=== PATIENT | female | born 1970 | race Caucasian/White ===

== ENCOUNTER 2017-05-14 18:35 | Emergency (ER) | payer OTHER ==
[2017-05-14 18:43] VITALS: BP 159/92
--- NOTE | 2017-05-14 18:51 | UC ---
Minor Trauma HPI - HPI Summary HPI Summary: 47 year old female presents with complains of right elbow laceration (2.5-5 cm) - History of Current Complaint Chief Complaint: UCSkin Stated Complaint: FELL-ELBOW,BACK,SHOULDER INJURIES Time Seen by Provider: 05/14/17 18:45 Hx Last Menstrual Period: 05/11/17 - Allergies/Home Medications Allergies/Adverse Reactions: Allergies Allergy/AdvReac Type Severity Reaction Status Date / Time Adhesive Tape Allergy Rash Verified 05/14/17 18:43 Cephalexin [From Keflex] Allergy Hives Verified 05/14/17 18:43 Sulfa Drugs Allergy Hives Verified 05/14/17 18:43 bees Allergy Anaphylatic Uncoded 05/14/17 18:43 Shock PMH/Surg Hx/FS Hx/Imm Hx Previously Healthy: Yes - Surgical History Surgical History: Yes Surgery Procedure, Year, and Place: [place] 2010. tubal ligation. R wrist surgery 1997 - Social History Alcohol Use: Rare Substance Use Type: None Smoking Status (MU): Former Smoker When Did the Patient Quit Smoking/Using Tobacco: 1999 Review of Systems Constitutional: Negative Skin: Other - right elbow laceration Eyes: Negative ENT: Negative Respiratory: Negative Cardiovascular: Negative Gastrointestinal: Negative Genitourinary: Negative Motor: Negative Neurovascular: Negative Musculoskeletal: Negative Neurological: Negative Psychological: Negative All Other Systems Reviewed And Are Negative: Yes Physical Exam Triage Information Reviewed: Yes Vital Signs: Initial Vital Signs Temp 36.7 C 05/14/17 18:37 Pulse 89 05/14/17 18:37 Resp 20 05/14/17 18:37 BP 159/92 05/14/17 18:37 Pulse Ox 100 05/14/17 18:37 Eye Exam: Normal ENT Exam: Normal Dental Exam: Normal Neck exam: Normal Neck: Positive: 1 Respiratory Exam: Normal Cardiovascular Exam: Normal Abdominal Exam: Normal Musculoskeletal Exam: Normal Neurological Exam: Normal Psychological Exam: Normal Skin: Positive: Other - right elboiw laceration Procedures - Laceration/Wound Repair 1 Location: upper extremity - right elbow 2.5 to 5 cm Description: Linear Anesthesia: Local, 1.0%, Lido Betadine Prep?: Yes Laceration/Wound Explored: clean Closure: Single Layer Debridement: minimal Suture Type: Nylon - 4.0 Number of Sutures: 3 Layer Closure?: No Sterile Dressing Applied?: No Minor Trauma Course/Dx - Differential Dx/Diagnosis Provider Diagnoses: right elbow/shoulder contusion. right elbow laceration Discharge - Discharge Plan Condition: Stable Disposition: HOME Prescriptions: DOXYcycline CAP(*) [DOXYcycline 100MG CAP(*)] 100 mg PO BID #14 cap Meloxicam [Mobic] 7.5 mg PO BID #30 tab Mupirocin 2% OINT* [Bactroban 2 % Oint*] 1 applic TOPICAL BID #1 tube Patient Education Materials: Laceration (ED), Soft Tissue Foreign Body (ED), Elbow Sprain (ED), Shoulder Sprain (ED) Referrals: Darryl Simons MD [Primary Care Provider] -
[2017-05-14] MEDS ORDERED: Lidocaine/Epineph/Tetraca SOL* (LET solution) 4 ML BTL TOPICAL ONE (18:57)
[2017-05-14] MEDS ORDERED: Ibuprofen TAB* 200 MG PO ONE (19:22)
--- NOTE | 2017-05-14 19:22 | RAD ---
INDICATION: Laceration. Foreign body. COMPARISON: None TECHNIQUE: AP, lateral, and oblique views were obtained. FINDINGS: There is no acute fracture. The elbow articulates only. There is no joint effusion. There is a laceration on the dorsal surface of the upper extremity at the level of the distal humerus. IMPRESSION: LACERATION. NO FRACTURE OR DISLOCATION.
--- NOTE | 2017-05-14 19:24 | RAD ---
INDICATION: Right shoulder injury COMPARISON: None TECHNIQUE: Routine frontal, Y and axial views were obtained. FINDINGS: The bony structures, joint spaces, and soft tissues are normal for age. IMPRESSION: NEGATIVE EXAMINATION.
[2017-05-14] MEDS ORDERED: Lidocaine 1% MPF* 2 ML VIAL INJ ONE (19:50)
[2017-05-14] MEDS ORDERED: Tetan/Diph/Pertus SYR(Tdap)* 0.5 ML SYR(BOOSTRIX) use SYR IM ONE (20:28)
== END 2017-05-14 20:35 | disposition home or self-care (01) ==
LOC: UCEAST 18:35
DX: S51.011A Laceration without foreign body of right elbow, initial encounter (principal); S50.01XA Contusion of right elbow, initial encounter; S40.011A Contusion of right shoulder, initial encounter; Z88.3 Allergy status to other anti-infective agents; Z91.030 Bee allergy status; Z88.2 Allergy status to sulfonamides; Z91.048 Other nonmedicinal substance allergy status; Z87.891 Personal history of nicotine dependence; W19.XXXA Unspecified fall, initial encounter
CPT/HCPCS: 12001; 90471; 90715; 99212; A9270-GY; G0463

== ENCOUNTER 2017-09-12 17:09 | Emergency (ER) | payer OTHER ==
[2017-09-12 18:50] LABS: Hematocrit 37 % (35-47); Hemoglobin 12.3 g/dl (12.0-16.0); Mean Corpuscular HGB Conc 33 g/dl (31-36); Mean Corpuscular Hemoglobin 29 pg (27-31); Mean Corpuscular Volume 88 fL (80-97); Mean Platelet Volume 8 um3 (7.4-10.4); Red Blood Count 4.19 10^6/ul (4.0-5.4); Red Cell Distribution Width 13 % (10.5-15); White Blood Count 9.1 10^3/ul (3.5-10.8)
[2017-09-12 19:01] LABS: ALT 15 U/L (7-52); AST 15 U/L (13-39); Alkaline Phosphatase 57 U/L (34-104); Anion Gap 8 mmol/L (2-11); BUN/Creatinine Ratio 19.4 (8-20); Blood Urea Nitrogen 14 mg/dL (6-24); C Reactive Protein 6.27 mg/L (< 5.00); CO2 Carbon Dioxide 25 mmol/L (22-32); Calcium 9.5 mg/dL (8.6-10.3); Chloride 101 mmol/L (101-111); EGFR African American 111.7 (>60); EGFR Non-African American 86.8 (>60); Globulin 3.4 g/dL (2-4); Glucose 85 mg/dL (70-100); Lipase 19 U/L (11.0-82.0); Potassium 3.6 mmol/L (3.5-5.0); Sodium 134 mmol/L (133-145); Total Protein 7.4 g/dL (6.4-8.9)
[2017-09-12 19:14] LABS: Urine Bacteria 1+ (Absent); Urine Bilirubin Negative (Negative); Urine Glucose Negative (Negative); Urine Nitrite Negative (Negative)
[2017-09-12] MEDS ORDERED: NS 0.9% 1000 ML* 1,000 ML IV ONE (21:10)
[2017-09-12] MEDS ORDERED: Morphine INJ* 4 MG/ML 1 ML CARPUJECT IV ONE ×2 (21:10→21:23)
[2017-09-12] MEDS ORDERED: Ondansetron INJ* 2 MG/ML VIAL IV ONE (21:10)
[2017-09-12] MEDS ORDERED: fentaNYL* 50 MCG/ML 2 ML VIAL (100 MCG VIAL) IV SLOW PU ONE (21:22)
[2017-09-12] MEDS ORDERED: Iohexol 300* (CONTRAST) 10 ML SDV IV ONE (21:28)
--- NOTE | 2017-09-12 21:38 | RAD ---
INDICATION: 47-year-old with right lower quadrant pain COMPARISON: CT November 10, 2013 TECHNIQUE: Axial source images were obtained from the hemidiaphragms to the symphysis pubis following administration of oral and intravenous contrast. 115 mL Omnipaque 300 was utilized. Coronal and sagittal reconstructed images were acquired. Lung bases: The lung bases are clear. Liver: The liver is normal in size. There are no masses. There is no ductal dilatation. Gallbladder: Cholecystectomy. Spleen: The spleen is normal in size. There are no masses. Pancreas: There is no focal pancreatic mass or ductal dilatation. Adrenal glands: There is no evidence of adrenal mass. Kidneys: The kidneys are normal in size and position. There are prompt nephrograms and there is prompt excretion bilaterally. There are no renal parenchymal masses. There is no evidence of nephrolithiasis. Adenopathy: There is no evidence of adenopathy by size criteria. Fluid collections: There are no free or localized fluid collections. Vessels:There are no significant atherosclerotic changes involving the aorta. There is no focal aneurysm. The iliac vessels are normal in caliber. The IVC appears normal. GI tract: There are no acute CT bowel findings. There is no obstruction. There is a small hiatal hernia. The stomach and small bowel appear normal. The lower GI tract is normal. The cecum, ileocecal valve, and terminal ileum appear normal. The appendix is visualized and appear normal. Pelvic organs: The uterus and right adnexa are normal. There is a 4.4 cm left adnexal cyst Bladder: There are no bladder masses. Abdominal and pelvic soft tissues: The extraperitoneal abdominal and pelvic soft tissues appear normal.. Osseous structures: There are no acute osseous findings. Other: None IMPRESSION: 1. Nonobstructive 4 mm lower pole left renal calculus, unchanged. 2. Small hiatal hernia. 3. 4.4 cm left adnexal cyst. 4. Normal appendix.
[2017-09-12] MEDS ORDERED: HYDROcodone/ACETAMIN 5-325 MG* 1 TAB PO ONE (21:53)
--- NOTE | 2017-09-12 21:59 | ED ---
Megan Contreras Nilda, scribed for Adrianna Downing MD on 09/12/17 at 1910 . Abdominal Pain/Female - HPI Summary HPI Summary: This patient is a 47 year old F presenting from [facility] to [facility] accompanied by friend with a chief complaint of constant severe sharp RLQ pain that radiates to back for the past 2 days. For a couple months, pt states she had mild intermittent abd pain that would resolve spontaneously. The patient rates the pain 7/10 in severity. Symptoms aggravated by movement and alleviated by rest. Pt states /para/abortus is 5/2/3 respectively. LNMP occurring now. - History of Current Complaint Chief Complaint: EDAbdPain Stated Complaint: RT SIDE ABD PAIN Time Seen by Provider: 09/12/17 18:36 Hx Obtained From: Patient Hx Last Menstrual Period: 05/11/17 Onset/Duration: Sudden Onset, Lasting Days, Still Present Timing: Constant Severity Currently: Severe Pain Intensity: 7 Pain Scale Used: 0-10 Numeric Location: Discrete At: RLQ Radiates: Yes Radiates to: Back Character: Sharp Aggravating Factor(s): Movement Alleviating Factor(s): Other: - rest Allergies/Adverse Reactions: Allergies Allergy/AdvReac Type Severity Reaction Status Date / Time Adhesive Tape Allergy Rash Verified 05/14/17 18:43 Cephalexin [From Keflex] Allergy Hives Verified 05/14/17 18:43 Sulfa Drugs Allergy Hives Verified 05/14/17 18:43 bees Allergy Anaphylatic Uncoded 05/14/17 18:43 Shock PMH/Surg Hx/FS Hx/Imm Hx Endocrine/Hematology History: Denies: Hx Diabetes, Hx Thyroid Disease Cardiovascular History: Denies: Hx Hypertension, Hx Pacemaker/ICD Respiratory History: Denies: Hx Asthma, Hx Chronic Obstructive Pulmonary Disease (COPD) GI History: Reports: Other GI Disorders - IBS Denies: Hx Ulcer History: Denies: Hx Renal Disease Sensory History: Denies: Hx Hearing Aid Psychiatric History: Denies: Hx Panic Disorder - Surgical History Surgery Procedure, Year, and Place: choley 2010. tubal ligation. R wrist surgery 1997 Infectious Disease History: No Infectious Disease History: Denies: Hx Clostridium Difficile, Hx Hepatitis, Hx Human Immunodeficiency Virus (HIV), Hx of Known/Suspected MRSA, Hx Shingles, Hx Tuberculosis, Hx Known/ Suspected VRE, Hx Known/Suspected VRSA, History Other Infectious Disease, Traveled Outside the [place] in Last 30 Days - Family History Known Family History: Positive: Diabetes - Social History Occupation: Employed Full-time Lives: With Family Alcohol Use: Rare Substance Use Type: Reports: None Smoking Status (MU): Former Smoker Review of Systems Positive: Abdominal Pain - RLQ Positive: Other - back pain All Other Systems Reviewed And Are Negative: Yes Physical Exam - Summary Physical Exam Summary: General: Well appearing, no pain distress Skin: Warm, Skin Color Reflects Adequate Perfusion, Dry Eyes: EOMI, MARK ENT: Pharynx normal, TMs normal Neck: Supple, nontender Respiratory: CTA, breath sounds present, no rhonchi, no wheezes, no rales Cardiovascular: RRR, no murmur, no rub, no gallop Abdomen: Soft, tender at RLQ, Non-distended, no guarding, no rebound Bowel: Present Musculoskeletal: MAR, No edema Neuro: Sensory/motor intact, A&Ox3, CN intact 2-12 Psych: Affect/mood appropriate Triage Information Reviewed: Yes Vital Signs On Initial Exam: Initial Vitals Temp Pulse Resp BP Pulse Ox 97.3 F 85 18 157/87 100 09/12/17 17:18 09/12/17 17:18 09/12/17 17:18 09/12/17 17:18 09/12/17 17:18 Vital Signs Reviewed: Yes - Rod Coma Scale Coma Scale Total: 15 Diagnostics - Vital Signs Vital Signs Temp Pulse Resp BP Pulse Ox 09/12/17 18:39 83 100 09/12/17 18:38 157/87 09/12/17 17:18 97.3 F 85 18 157/87 100 - Laboratory Lab Results: Lab Results 09/12/17 09/12/17 Range/Units 18:29 18:29 WBC 9.1 (3.5-10.8) 10^3/ul RBC 4.19 (4.0-5.4) 10^6/ul Hgb 12.3 (12.0-16.0) g/dl Hct 37 (35-47) % MCV 88 (80-97) fL MCH 29 (27-31) pg MCHC 33 (31-36) g/dl RDW 13 (10.5-15) % Plt Count 308 (150-450) 10^3/ul MPV 8 (7.4-10.4) um3 Neut % (Auto) 65.2 (38-83) % Lymph % (Auto) 23.1 L (25-47) % [place] % (Auto) 6.3 (1-9) % Eos % (Auto) 4.7 (0-6) % Baso % (Auto) 0.7 (0-2) % Absolute Neuts (auto) 5.9 (1.5-7.7) 10^3/ul Absolute Lymphs (auto) 2.1 (1.0-4.8) 10^3/ul Absolute Monos (auto) 0.6 (0-0.8) 10^3/ul Absolute Eos (auto) 0.4 (0-0.6) 10^3/ul Absolute Basos (auto) 0.1 (0-0.2) 10^3/ul Absolute Nucleated RBC 0 10^3/ul Nucleated RBC % 0 Lactic Acid 0.6 (0.5-2.0) mmol/L Result Diagrams: 09/12/17 18:29 09/12/17 18:29 Lab Statement: Any lab studies that have been ordered have been reviewed, and results considered in the medical decision making process. - CT Abd/Pel CT Interpretation Completed By: Radiologist - CT Abd/Pel, per radiologist, reveals: 1. Nonobstructive 4 mm lower pole left renal calculus, unchanged. 2. Small hiatal hernia. 3. 4.4 cm left adnexal cyst. 4. Normal appendix. ED physician has reviewed this radiology report and agrees. Re-Evaluation - Re-Evaluation First Eval Re-Evaluation Time: 21:44 Abdominal Pain Fem Course/Dx - Course Course Of Treatment: CT Abd/Pel, per radiologist, reveals: 1. Nonobstructive 4 mm lower pole left renal calculus, unchanged. 2. Small hiatal hernia. 3. 4.4 cm left adnexal cyst. 4. Normal appendix. ED physician has reviewed this radiology report and agrees. pt reavaluated and has a 3cm in circumference area of pain that is just inferior and to the right of the umbilicus, she is very tender in this spot even with mild touch without guarding or rebound. I question whether this is a small hernia although no defect was found on the CT. Pt does not have leukocytosis or a truly elevated crp and her ct was negative except for left adnexal cyst. there is no left adnexal tenderness. I have the pt following up in the am with surgery for a re-exam. - Diagnoses Provider Diagnoses: Abdominal pain, Hernia Discharge - Discharge Plan Condition: Stable Disposition: HOME Prescriptions: HYDROcodone/ACETAMIN 5-325 MG* [[place] 5-325 TAB*] 1 tab PO Q8H PRN #10 tab MDD 3 PRN Reason: Pain Referrals: Darryl Simons MD [Primary Care Provider] - 3 Days Additional Instructions: RETURN TO THE EMERGENCY DEPARTMENT FOR CHANGING OR WORSENING SYMPTOMS. The documentation as recorded by the Megan fragoso Nilda accurately reflects the service I personally performed and the decisions made by me, Adrianna Downing MD.
[2017-09-12 22:40] VITALS: BP 145/72
== END 2017-09-12 22:35 | disposition home or self-care (01) ==
LOC: ED 17:09
DX: K46.9 Unspecified abdominal hernia without obstruction or gangrene (principal); R10.31 Right lower quadrant pain; M54.9 Dorsalgia, unspecified; Z87.891 Personal history of nicotine dependence
CPT/HCPCS: 36415; 74177; 80053; 81003; 81015; 83605; 83690; 84702; 85025; 86140; 87086; 96374; 96375; 99284; J2405; Q9967

== ENCOUNTER 2019-07-31 07:46 | Emergency (ER) | payer OTHER ==
[2019-07-31 08:15] VITALS: BP 151/88
--- NOTE | 2019-07-31 08:38 | UC ---
Abdominal Pain Female HPI - HPI Summary HPI Summary: CHIEF COMPLAINT and HPI: This is a 49-year-old with a history of IBSwho complains of intense right lower quadrant pain. She is status post cholecystectomy in 2010 as well as a tubal ligation. The pain is described as primarily in the right lower quadrant, although it does radiate bilaterally and she has experienced this type of pain intermittently for the last 2 months. However, last night at 9:30 the pain became intense and did not resolve after a few minutes. When she woke up this morning the pain resumed. She did take CBDto help her sleep. When she ambulates, she must bend over. She feels as if she has to go to the bathroom all the time, but nothing comes out. The pain is described as severe and worse with walking She has decreased appetite, although she did eat some solid food last night. Dr. Lozoya is her doctor. Description of Pain:Sharp and boring as well as cramping. Right lower quadrant radiatingacross the lower abdomen. Patient denies urinary tract symptoms. VITAL SIGNS & SaO2 REVIEWED. Within normal limits unless noted here. NURSES NOTE REVIEWED. - History of Current Complaint Chief Complaint: UCAbdominalPain Stated Complaint: ABD PAIN Time Seen by Provider: 07/31/19 08:31 Hx Obtained From: Patient Hx Last Menstrual Period: 05/11/17 Pain Intensity: 10 Allergies/Adverse Reactions: Allergies Allergy/AdvReac Type Severity Reaction Status Date / Time Adhesive Tape Allergy Rash Verified 07/31/19 08:07 cephalexin [From Keflex] Allergy Hives Verified 07/31/19 08:07 Sulfa (Sulfonamide Allergy Hives Verified 07/31/19 08:07 Antibiotics) bees Allergy Anaphylatic Uncoded 07/31/19 08:07 Shock Home Medications: Home Medications Benzonatate 150 mg PO PRN 07/31/19 [History] Cbd Gummies 1 each PO BEDTIME 07/31/19 [History Confirmed 07/31/19] Naproxen Sodium [Naproxen ER 500 MG TAB] 500 mg PO PRN 07/31/19 [History] PMH/Surg Hx/FS Hx/Imm Hx - Additional Past Medical History Additional PMH: PAST MEDICAL HISTORY- CHRONIC and RECURRENT HEALTH PROBLEM LIST REVIEWED. Information relevant to present complaint: multiple visits for abdominal pain. VISIT HISTORY REVIEWED: MEDICATIONS & ALLERGIES REVIEWED.multiple allergies including cephalexin and sulfa. HYPERTENSION STATUS:n no antihypertensive medications. FAMILY HISTORY: noncontributory to present complaint. Patient denies family history of: diabetes SOCIAL HISTORY: lives with her . Former smoker. - Surgical History Surgical History: Yes Surgery Procedure, Year, and Place: choley 2010. tubal ligation. R wrist surgery 1997. total hysterectomy 03/2019. lt shoulder surgery - Family History Known Family History: Positive: Diabetes - Social History Alcohol Use: Rare Substance Use Type: None Smoking Status (MU): Former Smoker When Did the Patient Quit Smoking/Using Tobacco: 1999 Review of Systems All Other Systems Reviewed And Are Negative: Yes Constitutional: Positive: Negative Skin: Positive: Negative ENT: Positive: Negative Respiratory: Positive: Negative Cardiovascular: Positive: Negative Gastrointestinal: Positive: Abdominal Pain, Diarrhea, Nausea Genitourinary: Positive: Negative Is Patient Immunocompromised?: No Physical Exam - Summary Physical Exam Summary: Appearance: The patient is well-nourished. She is lying supine and in evident pain primarily from discomfort in the right lower quadrant. Eyes: Conjunctiva are clear. Pupils are equal and reactive to light and accommodation. Extra ocular muscle movement is intact. ENT: The hearing is grossly normal, the pharynx is normal, and the TMs are normal. There is no muffled or hoarse voice. No stridor. Neck: The neck is supple and there is no lymphadenopathy. Respiratory: The chest is non-tender to palpation and without crepitus. The lungs are clear, there are normal breath sounds, and there is no respiratory distress. No wheezes, rales or rhonchi. Cardiovascular: Heart sounds reveal a regular rate and rhythm. There are no clicks, rubs or murmurs. There are no carotid bruits or thrills. Circulation is grossly intact. Abdomen: The abdomen is soft. There is no organomegaly. Bowel sounds are present and within normal limits. Tender right lower quadrant and left lower quadrant. Pain with deep palpation in the left lower quadrant, radiates to the right lower quadrant. There is mild pain to percussion in the right lower quadrant. There is no rebound tenderness in either of the lower quadrants. No CVA tenderness. Musculoskeletal: Strength is intact. The patient moves all extremities. Neurological: The patient is alert. Motor and sensory are examination grossly intact. Speech is normal. Psychological: The patient displays age appropriate behavior, and is conversant. GCS=15. Skin: Negative for rashes. Triage Information Reviewed: Yes Vital Signs: Initial Vital Signs Temp 97.8 F 07/31/19 07:58 Pulse 85 07/31/19 07:58 Resp 22 07/31/19 07:58 BP 151/88 07/31/19 07:58 Pulse Ox 100 07/31/19 07:58 Abd Pain Female Course/Dx - Course Course Of Treatment: This is a 49-year-old with a history of IBSwho complains of intense right lower quadrant pain. She is status post cholecystectomy in 2010 as well as a tubal ligation. The pain is described as primarily in the right lower quadrant , although it does radiate bilaterally and she has experienced this type of pain intermittently for the last 2 months. However, last night at 9:30 the pain became intense and did not resolve after a few minutes. When she woke up this morning the pain resumed. She did take CBDto help her sleep. When she ambulates, she must bend over. She feels as if she has to go to the bathroom all the time, but nothing comes out. The pain is described as severe and worse with walking She has decreased appetite, although she did eat some solid food last night. Dr. Lozoya is her doctor. Physical examination shows a significant tenderness to palpation in the lower quadrants of the abdomen. There is no CVA tenderness. The patient walks without difficulty and is bent over. In discussion with the patient. She does not want to go to [facility] emergency department. [facility] is going to go to [facility]. My diagnosis is abdominal pain of unclear etiology, possible IBS. I cannot rule out appendicitis at this time. - Differential Dx/Diagnosis Differential Diagnosis: Bowel Obstruction, Constipation, Diverticulitis, Irritable Bowel Syndrome, Renal Colic Provider Diagnosis: Abdominal pain, Irritable bowel syndrome (IBS) Discharge ED - Sign-Out/Discharge Documenting (check all that apply): Patient Departure All imaging exams completed and their final reports reviewed: No Studies - Discharge Plan Condition: Stable Disposition: HOME-RECOMMEND TO ED Patient Education Materials: Acute Abdominal Pain (DC) Referrals: Darryl Simons MD [Primary Care Provider] - Additional Instructions: WE DISCUSSED: PLEASE SEEK CARE AT THE EMERGENCY DEPARTMENT at [facility]. Go directly there now. YOUR DIAGNOSIS IS: abdominal pain, unclear cause at this time. YOUR PRESCRIPTION RECOMMENDATION IS:none OTHER INSTRUCTIONS: no food or drink. Hypertension Discharge Instructions: your blood pressure was 151/88. Follow up with your primary care to recheck. - Billing Disposition and Condition Condition: STABLE Disposition: Home-Recommend to ED
== END 2019-07-31 09:10 | disposition home health service (06) ==
LOC: UCEAST 07:46
DX: R10.31 Right lower quadrant pain (principal); R11.0 Nausea; K58.0 Irritable bowel syndrome with diarrhea; Z90.49 Acquired absence of other specified parts of digestive tract; Z98.51 Tubal ligation status; Z87.891 Personal history of nicotine dependence; Z88.1 Allergy status to other antibiotic agents; Z88.2 Allergy status to sulfonamides; Z91.030 Bee allergy status; Z91.09 Other allergy status, other than to drugs and biological substances
CPT/HCPCS: 99212; G0463